=== PATIENT | female | born 1970 ===

== ENCOUNTER 2016-09-01 10:47 | Emergency (ER) | payer OTHER ==
[2016-09-01 11:03] VITALS: BP 143/98
--- NOTE | 2016-09-01 13:09 | RAD ---
Indication: Interscapular pain. 2 views of the chest including dual energy PA views demonstrate no mediastinal shift. Heart is normal size and configuration. Clear. IMPRESSION: No active cardiopulmonary disease is noted.
--- NOTE | 2016-09-01 13:36 | UC ---
Shelli Manuel Salem, scribed for Yuni Lennon MD on 09/01/16 at 1256 . Cardiac HPI - HPI Summary HPI Summary: Patient is a 46 y/o female who presents to the with CP since 3 days ago. She states she had a cold for the past 10 days ago. She reports CP is only present with deep breaths and it is localized on the left side (mostly posteriorly). She denies wheezing or any pain in the legs. Pt is adopted so no known family hx. No fever. - History of Current Complaint Chief Complaint: UCChestPain Stated Complaint: CHEST PAIN Hx Obtained From: Patient Onset/Duration: Gradual Onset, Lasting Days, Still Present Timing: Intermittent Episodes Lasting: Initial Severity: Moderate Current Severity: Moderate Pain Intensity: 6 Chest Pain Location: Left Anterior Character: Sharp/Stabbing Aggravating: Deep Breaths Alleviating: Nothing Associated Signs & Symptoms: Positive: Cough. Negative: SOB, Nausea/Vomiting, Palpitations, Calf Pain/Swelling - Risk Factors Pulmonary Embolism Risk Factors: Negative Cardiac Risk Factors: Negative - Allergy/Home Medications Allergies/Adverse Reactions: Allergies Allergy/AdvReac Type Severity Reaction Status Date / Time No Known Allergies Allergy Verified 07/13/13 09:20 PMH/Surg Hx/FS Hx/Imm Hx Respiratory History Of: Reports: Asthma Cancer History Of: Denies: Breast Cancer - Surgical History Surgical History: Yes Surgery Procedure, Year, and Place: meniscus tear - Family History Known Family History: Positive: Other - Pt is adopted, no known fam hx - Social History Alcohol Use: None Substance Use Type: None Smoking Status (MU): Never Smoked Tobacco Review of Systems Constitutional: Negative ENT: Nasal Discharge Respiratory: Negative Cardiovascular: Chest Pain - with deep breaths Gastrointestinal: Negative Genitourinary: Negative Motor: Negative Neurovascular: Negative Musculoskeletal: Negative Neurological: Negative Psychological: Negative All Other Systems Reviewed And Are Negative: Yes Physical Exam Triage Information Reviewed: Yes Appearance: No Pain Distress, Well-Nourished, Ill-Appearing Vital Signs: Initial Vital Signs Temp 98.2 F 09/01/16 10:58 Pulse 60 09/01/16 10:58 Resp 18 09/01/16 10:58 BP 143/98 09/01/16 10:58 Pulse Ox 100 09/01/16 10:58 Elevated BP noted Vital Signs Reviewed: Yes Eyes: Positive: Conjunctiva Clear ENT: Positive: Pharynx normal, TMs normal Neck: Positive: Supple Respiratory: Positive: Lungs clear, No respiratory distress, Decreased breath sounds Cardiovascular: Positive: RRR, No Murmur, Pulses Normal, Brisk Capillary Refill Musculoskeletal: Positive: Strength Intact, ROM Intact Neurological: Positive: Alert, Muscle Tone Normal Psychological Exam: Normal Skin Exam: Normal - Assessment/Plan Course Of Treatment: EKG SR, 50, nl axis 20, nl AVIVCT, no acute changes, no SI Q3T3, NSSTW changes. CXR neg - Differential Diagnoses - Chest Pain Differential Diagnosis/HQI/PQRI: ACS, Angina, Chest Wall, Lower Respiratory Infection, Pulmonary Embolism, Other: - pleurisy - Clinical Impression Provider Diagnoses: Pleurisy. Bradycardia. Elevated BP without dx of HTN Discharge - Discharge Plan Condition: Stable Disposition: HOME Prescriptions: Albuterol HFA INHALER* [Ventolin HFA Inhaler*] 2 puff INH Q4H PRN #1 mdi PRN Reason: Cough Ibuprofen TAB* [Motrin TAB* 600 MG] 600 mg PO Q8H PRN #20 tab PRN Reason: Pain Patient Education Materials: Pleurisy (ED) Referrals: [facility] [place] [facility] [Outside] Additional Instructions: Follow up in 2 days with referral for elevated BP. GO TO THE ER FOR ANY NEW OR WORSENING SYMPTOMS The documentation as recorded by the Shelli hackett Salem accurately reflects the service I personally performed and the decisions made by Saji simpson Barbara J, MD.
== END 2016-09-01 13:37 | disposition home or self-care (01) ==
LOC: UCEAST 10:47
DX: R09.1 Pleurisy (principal); R00.1 Bradycardia, unspecified; R03.0 Elevated blood-pressure reading, without diagnosis of hypertension
CPT/HCPCS: 71020; 93005; 99212; G0463

== ENCOUNTER 2016-09-03 05:31 | Emergency (ER) | payer OTHER ==
[2016-09-03] MEDS ORDERED: Ketorolac INJ* 30 MG/ML 1 ML VIAL IM ONE (06:06)
--- NOTE | 2016-09-03 06:48 | ED ---
Srikanth Manuel Billy, scribed for Brady Mcgill MD on 09/03/16 at 0605 . Back Pain - HPI Summary HPI Summary: Patient is a 46 year-old female coming to [facility] for evaluation of left upper back pain that is worse with inspiration. Pain severity 8/10. She states that her symptoms began approximately 10 days ago. She was seen at [facility] several days ago, where CXR and EKG were negative for acute disease. She was diagnosed with pleurisy. She has been taking ibuprofen for her symptoms with little improvement to pain. She states that her pain has been much worse today. - History of Current Complaint Chief Complaint: EDBackInjuryPain Stated Complaint: UPPER BACK PAIN Time Seen by Provider: 09/03/16 05:59 Hx Obtained From: Patient Hx Last Menstrual Period: 05/26 Onset/Duration: Gradual Onset, Lasting Days, Still Present Timing: Constant Back Pain Location: Is Discrete @ - left upper back pain Severity Initially: Moderate Severity Currently: Moderate Pain Intensity: 8 Pain Scale Used: 0-10 Numeric Alleviating Symptom(s): Nothing Associated Signs And Symptoms: Positive: Negative - Allergies/Home Medications Allergies/Adverse Reactions: Allergies Allergy/AdvReac Type Severity Reaction Status Date / Time No Known Allergies Allergy Verified 09/03/16 05:42 PMH/Surg Hx/FS Hx/Imm Hx Endocrine/Hematology History: Denies: Hx Diabetes Respiratory History: Reports: Hx Asthma - Cancer History Hx Chemotherapy: No Hx Radiation Therapy: No - Surgical History Surgery Procedure, Year, and Place: meniscus tear - Immunization History Date of Tetanus Vaccine: unk Date of Influenza Vaccine: none Infectious Disease History: No Infectious Disease History: Denies: History Other Infectious Disease, Traveled Outside the [place] in Last 30 Days Comment Only: Hx Hepatitis - tests pos but denies having, Hx Tuberculosis - states she tests + - Family History Known Family History: Positive: Unknown - Patient is adopted. - Social History Alcohol Use: None Substance Use Type: Reports: None Smoking Status (MU): Never Smoked Tobacco Review of Systems Negative: Fever Positive: Other - back pain All Other Systems Reviewed And Are Negative: Yes Physical Exam Triage Information Reviewed: Yes Vital Signs On Initial Exam: Initial Vitals Temp Pulse Resp BP Pulse Ox 98.3 F 67 14 146/87 100 09/03/16 05:35 09/03/16 05:35 09/03/16 05:35 09/03/16 05:35 09/03/16 05:35 Vital Signs Reviewed: Yes Appearance: Positive: Thin Skin: Positive: Warm Eyes: Positive: LOLITA ENT: Positive: Hearing grossly normal Neck: Positive: Supple, Nontender Respiratory/Lung Sounds: Positive: Clear to Auscultation, Breath Sounds Present Cardiovascular: Positive: RRR Abdomen Description: Positive: Nontender, Soft Musculoskeletal: Positive: Strength/ROM Intact Neurological: Positive: Alert, Oriented to Person Place, Time - Bee Coma Scale Coma Scale Total: 15 Diagnostics - Vital Signs Vital Signs Temp Pulse Resp BP Pulse Ox 09/03/16 05:35 98.3 F 67 14 146/87 100 - Laboratory Lab Statement: Any lab studies that have been ordered have been reviewed, and results considered in the medical decision making process. Back Pain Course/Dx - Diagnoses Provider Diagnoses: Pleurisy Discharge - Discharge Plan Condition: Stable Disposition: HOME Patient Education Materials: Pleurisy (ED) Referrals: [facility] [place] [facility] [Outside] Additional Instructions: TAKE MEDICATIONS PREVIOUSLY PRESCRIBED. The documentation as recorded by the Srikanth hackett Billy accurately reflects the service I personally performed and the decisions made by , Brady Mcgill MD.
[2016-09-03 06:52] VITALS: BP 123/79
== END 2016-09-03 06:50 | disposition home or self-care (01) ==
LOC: ED 05:31
DX: R09.1 Pleurisy (principal); M54.9 Dorsalgia, unspecified
CPT/HCPCS: 96372; 99282; J1885